=== PATIENT | male | born 1960 | race African-American/Black ===

== ENCOUNTER 2017-02-11 09:40 | Inpatient (IN) | payer MEDICAID ==
[~2017-02-11] VITALS: Ht 177.8 cm; Wt 81.6 kg
[2017-02-11] MEDS ORDERED: SODIUM CHLORIDE 0.9% 1,000 ML IV ONE (09:56)
[2017-02-11] MEDS ORDERED: LEVETIRACETAM 1,000 MG in SODIUM CHLORIDE 0.9% 100 ML IV ONE (10:00)
[2017-02-11] MEDS ORDERED: LEVETIRACETAM 1,000 MG in SODIUM CHLORIDE 0.9% 100 ML IV NR (10:30)
[2017-02-11 11:03] LABS: BASOPHILS % 0.4 % (0.0-2.0); EOSINOPHILS % 3.8 % (0.0-5.0); HEMATOCRIT. 44.3 % (42.0-52.0); HEMOGLOBIN. 14.8 g/dL (14.0-18.0); LYMPHOCYTES % 12.8 % (20.0-50.0); MEAN CORPUSCULAR HEMOGLOBIN 29.1 pg (28.0-32.0); MEAN CORPUSCULAR VOLUME 87.1 fL (80.0-94.0); MEAN PLATELET VOLUME 8.5 fl (7.4-10.4); MONOCYTES % 4.9 % (2.0-8.0); NEUTROPHILS % 78.1 % (40.0-76.0); PLATELET 269 x1000/uL (130-400); RED BLOOD CELL COUNT 5.09 mill/uL (4.7-6.1); RED CELL DISTRIBUTION WIDTH 13.8 % (11.6-14.6)
[2017-02-11 11:06] LABS: AMMONIA 70 uMol/L (<32)
[2017-02-11 11:09] LABS: INR 1.1; PROTHROMBIN TIME 11.6 sec (9.4-11.6)
[2017-02-11] MEDS ORDERED: LEVE500T19 PO (11:10)
[2017-02-11] MEDS ORDERED: LACT10SO44 PO (11:11)
[2017-02-11] MEDS ORDERED: GEMF600T3 PO (11:12)
[2017-02-11] MEDS ORDERED: PHEN100C12 PO (11:13)
[2017-02-11 11:24] LABS: CARBON DIOXIDE 19 mEq/L (21-32); CHLORIDE 107 mEq/L (98-107); ETHANOL BLOOD < 10 mg/dL; TROPONIN I < 0.02 ng/mL (0.00-0.04)
[2017-02-11 11:25] LABS: CLARITY URINE CLEAR (CLEAR); COLOR URINE YELLOW (YELLOW); KETONES URINE NEGATIVE (NEGATIVE); LEUKOCYTE ESTERASE URINE NEGATIVE (NEGATIVE); NITRITE URINE NEGATIVE (NEGATIVE); OCCULT BLOOD URINE TRACE (NEGATIVE); PH URINE 6.5 (4.5-8.0); PROTEIN URINE 2+ (NEGATIVE); SPECIFIC GRAVITY URINE 1.012 (1.005-1.030); UROBILINOGEN URINE 0.2 E.U./dL (0.2-1.0)
[2017-02-11 11:27] LABS: PHENOBARBITAL < 2.1 ug/mL (15.0-40.0); VALPROIC ACID < 3.0 ug/mL (50-100)
[2017-02-11 11:39] LABS: CARBAMAZEPINE < 0.5 ug/mL (4-12)
[2017-02-11] MEDS ORDERED: PHENYTOIN SODIUM 1,000 MG in SODIUM CHLORIDE 0.9% 100 ML IV ONE (11:45)
[2017-02-11 12:09] LABS: *AMPHETAMINES SCREEN URINE NEGATIVE (NEGATIVE); *BARBITURATES SCREEN URINE NEGATIVE (NEGATIVE); *BENZODIAZEPINES SCREEN URINE PRESUMTIVE POSITIVE (NEGATIVE); *COCAINE SCREEN URINE NEGATIVE (NEGATIVE); CANNABINOID URINE SCREEN NEGATIVE (NEGATIVE); METHADONE URINE SCREEN NEGATIVE (NEGATIVE); OPIATES URINE SCREEN NEGATIVE (NEGATIVE); PHENCYCLIDINE URINE SCREEN NEGATIVE (NEGATIVE)
[2017-02-11 20:30] VITALS: BP 119/90
[2017-02-11] MEDS ORDERED: PIPERACILLIN/TAZOBACTAM 3.375GM/50ML PREMIX IV SCH (21:45)
[2017-02-11] MEDS ORDERED: ACETAMINOPHEN 325MG TABLET PO PRN (21:45)
[2017-02-11] MEDS ORDERED: MORPHINE SULFATE 2 MG/ML CPJ (NOT FOR IM USE) IV PRN (22:00)
[2017-02-11] MEDS ORDERED: SODIUM CHLORIDE 0.9% 1,000 ML IV SCH (22:30)
[2017-02-11] MEDS: PHENYTOIN SODIUM EXTENDED 100MG CAPSULE PO SCH (22:53)
[2017-02-11] MEDS ORDERED: POTASSIUM CHLORIDE 20MEQ TABLET SR PO NR (23:00)
[2017-02-11] MEDS ORDERED: FUROSEMIDE 40MG/4ML VIAL IVP NR (23:00)
[2017-02-11] MEDS: PIPERACILLIN/TAZ 3.375G PREMIX 50 ML IV SCH (23:37)
[2017-02-12] VITALS: BP 98/62
[2017-02-12 04:00] VITALS: BP 96/66
[2017-02-12] MEDS: PHENYTOIN SODIUM EXTENDED 100MG CAPSULE PO SCH ×3 (06:28→21:55)
[2017-02-12 06:36] LABS: BASOPHILS % 0.7 % (0.0-2.0); EOSINOPHILS % 4.8 % (0.0-5.0); HEMATOCRIT. 41.9 % (42.0-52.0); HEMOGLOBIN. 14.7 g/dL (14.0-18.0); LYMPHOCYTES % 20.2 % (20.0-50.0); MEAN CORPUSCULAR HEMOGLOBIN 30.6 pg (28.0-32.0); MEAN CORPUSCULAR VOLUME 87.5 fL (80.0-94.0); MEAN PLATELET VOLUME 8.7 fl (7.4-10.4); MONOCYTES % 10.1 % (2.0-8.0); NEUTROPHILS % 64.2 % (40.0-76.0); PLATELET 242 x1000/uL (130-400); RED BLOOD CELL COUNT 4.78 mill/uL (4.7-6.1); RED CELL DISTRIBUTION WIDTH 13.7 % (11.6-14.6)
[2017-02-12 07:19] LABS: HDL CHOLESTEROL 42 mg/dL (40-59); LDL CHOLESTEROL 76 mg/dL (5-100); TROPONIN I < 0.02 ng/mL (0.00-0.04)
[2017-02-12 07:47] VITALS: BP 102/70
[2017-02-12] MEDS ORDERED: INFLUENZA VIRUS VACCINE 0.5ML SYR IM ONE (08:00)
[2017-02-12] MEDS: PIPERACILLIN/TAZ 3.375G PREMIX 50 ML IV SCH ×2 (08:45→17:34)
[2017-02-12] MEDS: LEVETIRACETAM 500MG TABLET PO SCH ×2 (08:45→21:55)
[2017-02-12] MEDS ORDERED: PNEUMOCOCCAL 23-VAL P-SAC VAC 0.5 ML IM ONE (10:00)
[2017-02-12 11:45] VITALS: BP 95/65
[2017-02-12] MEDS ORDERED: POTASSIUM CHLORIDE 20MEQ TABLET SR PO NR (15:45)
[2017-02-12 16:01] VITALS: BP 101/72
[2017-02-12 20:00] VITALS: BP 128/83
[2017-02-13] VITALS: BP 111/70
[2017-02-13] MEDS: PIPERACILLIN/TAZ 3.375G PREMIX 50 ML IV SCH ×3 (00:12→16:27)
[2017-02-13 04:00] VITALS: BP 115/80
[2017-02-13] MEDS: PHENYTOIN SODIUM EXTENDED 100MG CAPSULE PO SCH ×3 (06:08→21:00)
[2017-02-13 08:00] VITALS: BP 110/81
[2017-02-13] MEDS: LEVETIRACETAM 500MG TABLET PO SCH ×2 (08:25→20:57)
[2017-02-13 08:40] LABS: BASOPHILS % 0.8 % (0.0-2.0); EOSINOPHILS % 12.1 % (0.0-5.0); HEMATOCRIT. 40.4 % (42.0-52.0); HEMOGLOBIN. 13.8 g/dL (14.0-18.0); LYMPHOCYTES % 22.2 % (20.0-50.0); MEAN CORPUSCULAR VOLUME 87.8 fL (80.0-94.0); MEAN PLATELET VOLUME 8.8 fl (7.4-10.4); MONOCYTES % 8.5 % (2.0-8.0); NEUTROPHILS % 56.4 % (40.0-76.0); PLATELET 223 x1000/uL (130-400); RED CELL DISTRIBUTION WIDTH 13.8 % (11.6-14.6)
[2017-02-13 12:00] VITALS: BP 111/79
[2017-02-13 16:00] VITALS: BP 117/84
[2017-02-13 20:00] VITALS: BP 111/77
[2017-02-13] MEDS ORDERED: PHENYTOIN SODIUM 500 MG in SODIUM CHLORIDE 0.9% 50 ML IV NR (20:00)
[2017-02-14] VITALS: BP 111/84
[2017-02-14] MEDS: PIPERACILLIN/TAZ 3.375G PREMIX 50 ML IV SCH ×2 (00:41→08:25)
[2017-02-14 04:00] VITALS: BP 106/74
[2017-02-14] MEDS: PHENYTOIN SODIUM EXTENDED 100MG CAPSULE PO SCH ×2 (05:30→13:59)
[2017-02-14 08:00] VITALS: BP 111/77
[2017-02-14] MEDS: LEVETIRACETAM 500MG TABLET PO SCH (08:25)
[2017-02-14 12:00] VITALS: BP 104/75
== END 2017-02-14 14:10 | disposition home or self-care (01) | DRG 53 ==
LOC: EDBD 09:46 → ER 09:46 → 6WST 13:47 → EDBEDREQ 13:49 → EDBEDREQTM 13:49 → ENRESERV 18:07
PROVIDERS: ADMIT Internal Medicine; ATTEND Internal Medicine
DX: G40.409 Other generalized epilepsy and epileptic syndromes, not intractable, without status epilepticus (principal); R65.10 Systemic inflammatory response syndrome (SIRS) of non-infectious origin without acute organ dysfunction; E78.5 Hyperlipidemia, unspecified; F10.10 Alcohol abuse, uncomplicated; I10 Essential (primary) hypertension; N39.0 Urinary tract infection, site not specified; Z79.899 Other long term (current) drug therapy
CPT/HCPCS: 36415; 70450; 71010; 71020; 80051; 80053; 80061; 80156; 80165; 80184; 80185; 80305; 81001; 82140; 83735; 83880; 84484; 85025; 85610; 86850; 86900; 87086; 90686; 90732; 93005; 96365; 96366; 96367; 97116; 97161; 99285; G0482; J1165; J1940; J1953; J2543; J7030; J7050